=== PATIENT | male | born 1960 | race Caucasian/White ===

== ENCOUNTER 2017-01-16 20:42 | Emergency (ER) | payer MEDICAID, MEDICARE ==
[~2017-01-16] VITALS: Ht 175.3 cm; Wt 88.9 kg
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
[2017-01-16 22:02] VITALS: BP 158/119
== END 2017-01-16 22:16 | disposition home or self-care (01) ==
LOC: ER 20:42
DX: S39.012A Strain of muscle, fascia and tendon of lower back, initial encounter (principal); S16.1XXA Strain of muscle, fascia and tendon at neck level, initial encounter; I10 Essential (primary) hypertension; F41.9 Anxiety disorder, unspecified; F25.9 Schizoaffective disorder, unspecified; V89.2XXA Person injured in unspecified motor-vehicle accident, traffic, initial encounter; Y93.89 Activity, other specified; Y99.8 Other external cause status; Y92.410 Unspecified street and highway as the place of occurrence of the external cause
CPT/HCPCS: 72125; 72128; 72131; 99284-25

== ENCOUNTER 2017-06-15 14:56 | Inpatient (IN) | payer MEDICARE ==
[2017-06-15] MEDS: ONDANSETRON PF 4 MG/2 ML VIAL. IV (21:11)
[2017-06-15] MEDS: TAMSULOSIN 0.4 MG CAP.ER.24H. PO (21:11)
[2017-06-15] MEDS: levETIRAcetam 500 MG TABLET PO (21:11)
[2017-06-16] MEDS: levETIRAcetam 500 MG TABLET PO ×2 (09:47→21:04)
[2017-06-16 13:00] LABS: THYROID STIM HORMONE (TSH) 1.109 uIU/mL (0.358-3.74)
[2017-06-16 14:25] LABS: IONIZED CALCIUM 1.13 mmol/L (1.13-1.32)
[2017-06-16] MEDS: ACETAMINOPHEN 325 MG TABLET. PO (16:10)
[2017-06-16] MEDS: TAMSULOSIN 0.4 MG CAP.ER.24H. PO (21:04)
[2017-06-17] MEDS: levETIRAcetam 500 MG TABLET PO ×2 (10:49→20:08)
[2017-06-17] MEDS: ACETAMINOPHEN 325 MG TABLET. PO (13:14)
[2017-06-17 14:05] LABS: ANION GAP 13 (6-14); BLOOD UREA NITROGEN 16 mg/dL (8-26); CALCIUM 9.3 mg/dL (8.5-10.1); CARBON DIOXIDE 29 mmol/L (21-32); CHLORIDE 95 mmol/L (98-107); CREATININE 0.8 mg/dL (0.7-1.3); GFR 100.4; GLUCOSE 102 mg/dL (70-99); POTASSIUM 3.2 mmol/L (3.5-5.1); SODIUM 137 mmol/L (136-145)
[2017-06-17 17:35] LABS: POC GLUCOSE 81 mg/dL (70-99)
[2017-06-17] MEDS: TAMSULOSIN 0.4 MG CAP.ER.24H. PO (20:08)
[2017-06-17] MEDS: IBUPROFEN 400 MG TABLET. PO (20:08)
[2017-06-18] MEDS: levETIRAcetam 500 MG TABLET PO ×2 (09:14→22:04)
[2017-06-18] MEDS: BENZTROPINE MESYLATE 1 MG TABLET. PO ×2 (09:14→17:18)
[2017-06-18] MEDS: ACETAMINOPHEN 325 MG TABLET. PO (22:01)
[2017-06-18] MEDS: ONDANSETRON PF 4 MG/2 ML VIAL. IV (22:01)
[2017-06-18] MEDS: TAMSULOSIN 0.4 MG CAP.ER.24H. PO (22:01)
[2017-06-19] MEDS: BENZTROPINE MESYLATE 1 MG TABLET. PO ×3 (06:23→17:22)
[2017-06-19] MEDS: levETIRAcetam 500 MG TABLET PO ×2 (09:14→20:19)
[2017-06-19] MEDS: TAMSULOSIN 0.4 MG CAP.ER.24H. PO (20:19)
[2017-06-19] MEDS: ACETAMINOPHEN 325 MG TABLET. PO (20:19)
[2017-06-19 20:53] LABS: POC GLUCOSE 96 mg/dL (70-99)
[2017-06-20] MEDS: BENZTROPINE MESYLATE 1 MG TABLET. PO ×2 (06:25→11:57)
[2017-06-20] MEDS: levETIRAcetam 500 MG TABLET PO (08:06)
== END 2017-06-20 15:30 | disposition home health service (06) | DRG 57 ==
LOC: ER 14:56 → 6 SOUTH 16:32
PROVIDERS: Family Medicine
DX: G21.19 Other drug induced secondary parkinsonism (principal); F25.9 Schizoaffective disorder, unspecified; G40.909 Epilepsy, unspecified, not intractable, without status epilepticus; F79 Unspecified intellectual disabilities; F31.9 Bipolar disorder, unspecified; R33.8 Other retention of urine; G25.1 Drug-induced tremor; N40.1 Benign prostatic hyperplasia with lower urinary tract symptoms; F41.9 Anxiety disorder, unspecified; I10 Essential (primary) hypertension; Z79.899 Other long term (current) drug therapy
CPT/HCPCS: 36415; 80048; 82310; 82962; 84443; 97116-GP; 97162-GP; 97166-GO; 97530-GP; 99285; 99285-25; J2405